=== PATIENT | female | born 1960 | race Caucasian/White ===

== ENCOUNTER 2016-06-29 01:58 | Inpatient (IN) | payer MEDICARE, BC ==
[~2016-06-29] VITALS: Ht 160 cm; Wt 63.6 kg
[2016-06-29] MEDS ORDERED: IPRATRPIUM/ALBUTEROL 0.5/2.5MG 3 ML NEBU. NEB ONE (02:15)
[2016-06-29 02:23] LABS: BASO % 0 % (0-3); EOS % 1 % (0-3); LYMPH # 2.2 x10^3/uL (1.0-4.8); LYMPH % 12 % (24-48); MEAN CORPUSCULAR HEMOGLOBIN 29 pg (25-35); MEAN CORPUSCULAR HGB CONC 33 g/dL (31-37); MEAN CORPUSCULAR VOLUME 88 fL (79-100); MONO % 6 % (0-9); NEUT % 81 % (31-73); PLATELET COUNT 251 x10^3/uL (140-400); RED BLOOD COUNT 5.11 x10^6/uL (3.50-5.40); RED CELL DISTRIBUTION WIDTH 13.2 % (11.5-14.5); WHITE BLOOD COUNT 18.5 x10^3/uL (4.0-11.0)
[2016-06-29 02:36] LABS: CALCIUM 9.4 mg/dL (8.5-10.1); CREATININE 0.7 mg/dL (0.6-1.0); GFR 86.9; POTASSIUM 3.9 mmol/L (3.5-5.1)
--- NOTE | 2016-06-29 03:00 | PHYS DOC ---
Past Medical History Past Medical History: Fibromyalgia Past Surgical History: , Other Additional Past Surgical Histo: R. KNEE, R. TENDON RELEASE Smoking: Cigarettes Alcohol Use: None Drug Use: None Adult General Chief Complaint Chief Complaint: SHORTNESS OF BREATH HPI HPI Patient is a 55 year old female who presents with for evaluation of difficulty breathing and persistent cough. She has had illness for the past 2 weeks including chills, myalgia, cough, difficulty breathing, fever and chills. States she had fever last week, but it has resolved. She was improving on the whole, but has persistent cough and difficulty breathing. Denies hemoptysis, leg pain or swelling, headache, sore throat, rhinorrhea, leg pain or swelling, abdominal pain, nausea or vomiting, diarrhea. Denies recent hospitalization or antibiotic use. Review of Systems Review of Systems Constitutional: Had fever and chills [] Eyes: Denies change in visual acuity, redness, or eye pain [] HENT: Denies nasal congestion or sore throat [] Respiratory: Has cough and shortness of breath [] Cardiovascular: No additional information not addressed in HPI [] GI: Denies abdominal pain, nausea, vomiting, bloody stools or diarrhea [] : Denies dysuria or hematuria [] Musculoskeletal: Denies back pain or joint pain [] Integument: Denies rash or skin lesions [] Neurologic: Denies headache, focal weakness or sensory changes [] Endocrine: Denies polyuria or polydipsia [] Current Medications Current Medications Current Medications Medications (Trade) Dose Ordered Sig/[facility] Start Time Stop Time Status Last Admin Dose Admin Albuterol/ Ipratropium (Duoneb) 3 ml 1X ONCE 06/29/16 02:15 06/29/16 02:48 DC 06/29/16 02:28 3 ML Levofloxacin/ Dextrose 1 each 1 each PRN DAILY PRN 06/29/16 03:15 UNV Ondansetron HCl (Zofran) 4 mg PRN Q8HRS PRN 06/29/16 03:15 06/30/16 03:14 UNV Prednisone (Prednisone) 60 mg 1X ONCE 06/29/16 03:15 06/29/16 03:16 Sodium Chloride (Iv Sodium Chloride 0.9% 1000ml Bag) 1,000 ml @ 1,000 mls/hr 1X ONCE 06/29/16 03:15 06/29/16 04:14 UNV Allergies Allergies Allergies Coded Allergies Type Severity Reaction Last Updated Verified No Known Drug Allergies 06/29/16 No Physical Exam Physical Exam Constitutional: Well developed, well nourished, no acute distress, non-toxic appearance. [] HENT: Normocephalic, atraumatic, bilateral external ears normal, oropharynx moist, no oral exudates, nose normal. [] Eyes: PERRLA, EOMI. [] Neck: Normal range of motion, supple, no stridor. [] Cardiovascular:Heart rate regular rhythm [] Lungs & Thorax: Bilateral breath sounds clear to auscultation. Bronchospastic cough [] Abdomen: Bowel sounds normal, soft, no tenderness. [] Skin: Warm, dry, no erythema, no rash. [] Back: Normal range of motion. [] Extremities: No tenderness, ROM intact, no edema, no palpable cord. [] Neurologic: Alert and oriented X 3, normal motor function, normal sensory function, no focal deficits noted. [] Psychologic: Affect normal, judgement normal, mood normal. [] Current Patient Data Vital Signs Vital Signs Date Time Temp Pulse Resp B/P Pulse Ox O2 Delivery O2 Flow Rate FiO2 06/29/16 02:30 97 Nasal Cannula 3.0 06/29/16 02:21 98.2 115 24 153/75 98.2 Lab Values Laboratory Tests Test 06/29/16 02:07 White Blood Count 18.5x10^3/uL (4.0-11.0) H Red Blood Count 5.11x10^6/uL (3.50-5.40) Hemoglobin 15.0g/dL (12.0-15.5) Hematocrit 45.0% (36.0-47.0) Mean Corpuscular Volume 88fL (79-100) Mean Corpuscular Hemoglobin 29pg (25-35) Mean Corpuscular Hemoglobin Concent 33g/dL (31-37) Red Cell Distribution Width 13.2% (11.5-14.5) Platelet Count 251x10^3/uL (140-400) Neutrophils (%) (Auto) 81% (31-73) H Lymphocytes (%) (Auto) 12% (24-48) L Monocytes (%) (Auto) 6% (0-9) Eosinophils (%) (Auto) 1% (0-3) Basophils (%) (Auto) 0% (0-3) Neutrophils # (Auto) 15.0x10^3uL (1.8-7.7) H Lymphocytes # (Auto) 2.2x10^3/uL (1.0-4.8) Monocytes # (Auto) 1.1x10^3/uL (0.0-1.1) Eosinophils # (Auto) 0.2x10^3/uL (0.0-0.7) Basophils # (Auto) 0.0x10^3/uL (0.0-0.2) Platelet Estimate Pending Sodium Level 135mmol/L (136-145) L Potassium Level 3.9mmol/L (3.5-5.1) Chloride Level 98mmol/L (98-107) Carbon Dioxide Level 28mmol/L (21-32) Anion Gap 9 (6-14) Blood Urea Nitrogen 8mg/dL (7-20) Creatinine 0.7mg/dL (0.6-1.0) Estimated GFR (Cockcroft-Gault) 86.9 Glucose Level 118mg/dL (70-99) H Calcium Level 9.4mg/dL (8.5-10.1) Troponin I Quantitative < 0.017ng/mL (0.000-0.055) [id number]-Yrz-M-Type Natriuretic Peptide 133pg/mL (0-124) H Laboratory Tests 06/29/16 02:07 Laboratory Tests 06/29/16 02:07 EKG EKG EKG as interpreted by me as sinus tachycardia, rate 1:15, no ST-T changes, normal intervals, no ectopy Radiology/Procedures Radiology/Procedures Chest xray as interpreted by me with consolidation to right lower heart border, but otherwise nonacute Course & Med Decision Making Course & Med Decision Making Pertinent Labs and Imaging studies reviewed. (See chart for details) Has leukocytosis and haziness in right heart border concerning for pneumonia. Desats into the upper 80s upon standing. She maintains oxygenation in the low 90s on 2 L nasal cannula. Will admit for community acquired pneumonia. Discussed case with Dr. Bautista, who will admit. Prieto Disclaimer Dragon Disclaimer This electronic medical record was generated, in whole or in part, using a voice recognition dictation system. Departure Departure Impression: Primary Impression: Community acquired pneumonia Disposition: ADMITTED INPATIENT Condition: STABLE Dianne GOODEN MD Jun 29, 2016 03:00
[2016-06-29] MEDS ORDERED: PREDNISONE 20 MG TABLET PO ONE (03:15)
[2016-06-29] MEDS ORDERED: ALBUTEROL SULFATE 2.5 MG/3 ML NEBU. NEB PRN (03:15)
[2016-06-29] MEDS ORDERED: IV NORMAL SALINE 1000ML BAG 1,000 ML IV ONE (03:15)
[2016-06-29] MEDS ORDERED: ONDANSETRON PF 4 MG/2 ML VIAL. IV PRN (03:15)
[2016-06-29] MEDS ORDERED: LEVOFLOXACIN PER PHARMACY MC PRN (03:30)
[2016-06-29 04:30] VITALS: BP 136/74
--- NOTE | 2016-06-29 04:53 | ACF ---
Admit Criteria Forms Admit Criteria Forms Admit Criteria Forms PNEUMONIA, COMMUNITY ACQUIRED Clinical Indications for Admission to Inpatient Care ( Place 'X' for any and all applicable criteria): Admission is indicated for ANY ONE of the following (1)(2)(3): [X]I. Hypoxemia indicated by ANY ONE of the following: [X]a) Oxygen saturation less than 90% while breathing room air [ ]b) PO2 less than 60 mm Hg (8.0 kPa) while breathing room air [ ]c) Chronic lung disease with significant deterioration from baseline oxygenation []II. Appropriate diagnostic testing and treatment unavailable in outpatient or recovery facility (eg,testing or infection control measures unavailable(10) [ ]III. Moderate-risk or high-risk category patients (Pneumonia Severity Index (PSI) class IV or V, or CURB-65 score of 3 or greater). [ ]IV. Outpatient treatment failure as indicated by ANY ONE of the following(9) : [ ]a) Failure to respond to antibiotic (eg, resistant organism) [ ]b) Clinically significant adverse effects from medication (eg, vomiting) [ ]c) Complications of pneumonia (eg, empyema, bacteremia) [ ]d) Significant worsening of comorbid cond necessitating inpatient care (eg, chronic heart failure) [ ]V. Intermediate-risk category patients (eg, PSI class III or CURB-65 score 2) who do not improve with initial therapy and observation. [ ]. Immunocompromised patients (eg, AIDS, chronic steroid use) at moderate or high risk based on clinical evaluation. [ ]VII. Complicated pleural effusions (eg, exudative, loculated) [ ]VIII.Hemodynamic instability [ ] IX. Altered mental status that is severe or persistent. [ ]X. Dehydration that is severe or persistent. [ ]XI. Bacteremia [ ]XII. Respiratory finding (eg. tachypnea) that do not respond to outpatient or observation care treatment Extended stay beyond goal length of stay may be needed for (20) [ ]a) Unclear diagnosis [ ]b) Pleural disease [ ]c) Severe pneumonia or treatment failure (25 [ ]d) Respiratory failure (anticipate invasive or noninvasive ventilatory support) [ ]e) Abnormal serum electrolytes (serum Na concentration less than 135 mEq/L (mmol/L) (32)(33) [ ]f) Clinically significant comorbid illness (eg, heart failure, atrial fibrillation with rapid heart rate, alcohol withdrawal, renal insufficiency)(34)(35) [ ]g) Comorbid acute exacerbation of COPD(36) [ ]h) Concomitant diagnosis of malignancy that may be associated with malnutrition, immunologic impairment, or bronchial obstruction. [ ]i) Concomitant altered mental status [ ]j) Culture-identified Gram-negative or antibiotic-resistant organism (eg, Pseudomonas, methicillin-resistant Staphylococcus aureus)(30) [ ]k) Healthcare-associated pneumonia The original [facility] content created by [employer] has been revised. The portions of the content which have been revised are identified through the use of italic text or in bold, and [facility] has neither reviewed nor approved the modified material. All other unmodified content is copyright [facility]. Please see references footnoted in the original [facility] edition 2016 CAROLE SINGH Jun 29, 2016 04:53
[2016-06-29] MEDS ORDERED: ESOM20CA PO (05:10)
[2016-06-29] MEDS ORDERED: HYDR-2666 PO (05:10)
[2016-06-29] MEDS ORDERED: FENT1PAT15 TD (05:10)
[2016-06-29 07:00] VITALS: BP 119/67
--- NOTE | 2016-06-29 07:42 | RAD ---
Portable chest, 06/29/2016: History: Dyspnea, cough The heart size and pulmonary vascularity are normal. There is minimal scarring over the pulmonary apices. No pulmonary consolidation is seen. There is no evidence of pleural fluid. IMPRESSION: No acute cardiopulmonary abnormality is detected.
[2016-06-29] MEDS ORDERED: PNEUMOC CONJ VACC 23-VALENT 0.5 ML VIAL. VAX IM ONE (09:00)
[2016-06-29] MEDS ORDERED: PNEUMOCOCCAL VAX SCREEN BY RX. MC ONE (09:00)
[2016-06-29] MEDS: ACETAMINOPHEN 325 MG TABLET. PO PRN ×2 (09:38→14:47)
[2016-06-29 09:40] LABS: % BASOS 1 % (0-3); % EOS 1 % (0-5)
[2016-06-29 09:41] LABS: PLT ESTIMATE ADEQUATE (ADEQUATE)
[2016-06-29 11:00] VITALS: BP 115/66
--- NOTE | 2016-06-29 12:15 | EKG ---
[facility] [address] [place] [address] Test Date: 2016-06-29 Test Time: 02:07:25 Pat Name: BOB JAIME Department: Room: Gender: F Outsole Tacker: : 1960 Requested By: Dianne GOODEN Order Number: [id number] Reading MD: Measurements Intervals [place] Rate: 115 P: 41 LA: 148 QRS: 64 QRSD: 74 T: 53 QT: 332 QTc: 461 Interpretive Statements SINUS TACHYCARDIA OTHERWISE NORMAL ECG RI6.01 Unconfirmed report No previous ECG available for comparison
[2016-06-29 15:00] VITALS: BP 121/64
[2016-06-29 19:00] VITALS: BP 113/62
[2016-06-29] MEDS: PROMETH/CODEINE 6.25/10MG 5 ML SYRUP. PO PRN (22:06)
[2016-06-29] MEDS: HYDROCODONE/APAP 5/325MG TABLET. PO PRN (22:08)
[2016-06-29] MEDS: ENOXAPARIN 40 MG/0.4 ML DISP.SYRIN. SQ SCH (22:09)
--- NOTE | 2016-06-29 22:09 | HP ---
ADMIT DATE: 06/29/2016 CHIEF COMPLAINT: Shortness of breath. HISTORY OF PRESENT ILLNESS: The patient is a 55-year-old smoker who presented to the Emergency Room with severe shortness of breath. She relates that she started having stuffy runny nose about 1 week ago. This was a sudden onset and progressed quickly to a sore throat, cough, sputum production and subjective fever and chills as well as difficulty breathing. She felt actually that she was getting a little better towards the end of the week; however, yesterday symptoms once again were terrible with fevers and feeling quite ill. She therefore decided to come to the hospital for evaluation. She specifically denies any hemoptysis, nausea, vomiting, diarrhea. Multiple sick contacts in the family, however. PAST MEDICAL HISTORY: Fibromyalgia, COPD, knee surgery. FAMILY HISTORY: Positive heart disease in father and siblings. SOCIAL HISTORY: Lives with her , is on disability for fibromyalgia, but continues to smoke about 1 pack a day, although quit when her symptoms began one week ago. Denies any alcohol or drug use. ALLERGIES: No known drug allergies. HOME MEDICATIONS: Reconciled with MAR. REVIEW OF SYSTEMS: Positive as per HPI. Breathing is somewhat improved since admission a few hours earlier. Rest of organ system review is negative. PHYSICAL EXAMINATION: VITAL SIGNS: Show a blood pressure of 119/67, heart rate of 90, respiratory rate of 18. She is afebrile, pulse ox 90 with 2 liters by nasal cannula. GENERAL: This is a well-nourished, but ill-appearing 55-year-old woman, alert and oriented, in no acute distress. HEENT: Shows no scleral icterus. NECK: Supple, without any lymphadenopathy. LUNGS: Positive for wheezing, no rales appreciated. CARDIOVASCULAR: Regular rate and rhythm. ABDOMEN: Positive bowel sounds, soft, nontender. EXTREMITIES: Show no edema. SKIN: Warm, soft and dry without any rash. LABORATORY DATA: CBC with a WBC of 18.5, hemoglobin 15.0, platelets of 251. Chemistries with a BUN and creatinine of 8 and 0.7. Electrolytes within normal. Imaging studies show a chest x-ray with no acute cardiopulmonary abnormality noted. ASSESSMENT AND PLAN: The patient is a 55-year-old woman presenting what appears to be acute bronchitis/chronic obstructive pulmonary disease exacerbation. We will treat her with ongoing steroids, nebulizers, O2 as needed. She also has been started on Levaquin for bronchitis. Continue other supportive measures as needed for cough and runny nose. For her fibromyalgia, her home regimen of fentanyl and hydrocodone will be continued. She will be placed on IV fluids. Tobacco abuse is ongoing, although she has been able to refrain from smoking for the past week. She declines patch at this time. Prophylaxis will be instituted with PPI and Lovenox. SHYANN DAVID MD DR: AURORA/nts JOB#: [id number] / [id number] ALEXANDER
[2016-06-29] MEDS: POTASSIUM CHLORIDE 20 MEQ in IV 1/2 NORMAL SALINE 1,000 ML IV SCH (22:12)
[2016-06-29 23:00] VITALS: BP 107/66
[2016-06-30 03:00] VITALS: BP 96/68
[2016-06-30 06:48] LABS: BASO # 0.1 x10^3/uL (0.0-0.2); BASO % 1 % (0-3); EOS % 2 % (0-3); HEMATOCRIT 38.5 % (36.0-47.0); HEMOGLOBIN 12.3 g/dL (12.0-15.5); LYMPH # 3.7 x10^3/uL (1.0-4.8); LYMPH % 28 % (24-48); MEAN CORPUSCULAR HEMOGLOBIN 29 pg (25-35); MEAN CORPUSCULAR HGB CONC 32 g/dL (31-37); MEAN CORPUSCULAR VOLUME 91 fL (79-100); MONO % 6 % (0-9); NEUT % 64 % (31-73); PLATELET COUNT 211 x10^3/uL (140-400); RED BLOOD COUNT 4.25 x10^6/uL (3.50-5.40); RED CELL DISTRIBUTION WIDTH 13.5 % (11.5-14.5); WHITE BLOOD COUNT 12.9 x10^3/uL (4.0-11.0)
[2016-06-30 07:00] VITALS: BP 124/70
[2016-06-30 07:05] LABS: ALBUMIN 2.6 g/dL (3.4-5.0); ALBUMIN/GLOBULIN RATIO 0.6 (1.0-1.7); CALCIUM 8.7 mg/dL (8.5-10.1); CREATININE 0.8 mg/dL (0.6-1.0); GFR 74.5; POTASSIUM 4.2 mmol/L (3.5-5.1); TOTAL BILIRUBIN 0.4 mg/dL (0.2-1.0); TOTAL PROTEIN 6.8 g/dL (6.4-8.2)
[2016-06-30] MEDS: PROMETH/CODEINE 6.25/10MG 5 ML SYRUP. PO PRN ×2 (09:44→20:57)
[2016-06-30] MEDS: PANTOPRAZOLE 40 MG TABLET. PO SCH (09:45)
[2016-06-30] MEDS: HYDROCODONE/APAP 5/325MG TABLET. PO PRN ×2 (09:45→17:54)
[2016-06-30 11:00] VITALS: BP 116/65
[2016-06-30] MEDS: ALBUTEROL SULFATE 2.5 MG/3 ML NEBU. NEB SCH ×3 (11:40→19:33)
[2016-06-30] MEDS: GUAIFENESIN DM 600/30MG TAB.ER.12H. PO SCH ×2 (12:15→20:57)
[2016-06-30] MEDS: POTASSIUM CL 20MEQ-0.45% NACL 1,000 ML IV SCH (14:25)
[2016-06-30 15:00] VITALS: BP 114/74
--- NOTE | 2016-06-30 16:36 | PDOC ---
PROGRESS NOTES Chief Complaint Chief Complaint Bronchitis ASSESSMENT AND PLAN: 1. COPD exacerbation/ acute bronchitis: clinically sl improved. cont current regimen (levaquin, nebs, O2, mucinex, prednisone) 2. Chronic pain syndrome: cont home meds 3. GERD: on PPI 4. Dispo: poss home in AM Vitals Vitals Vital Signs Date Time Temp Pulse Resp B/P Pulse Ox O2 Delivery O2 Flow Rate FiO2 06/30/16 15:39 92 Nasal Cannula 2.0 06/30/16 15:00 97.6 93 20 114/74 97.6 Physical Exam General: Alert, Oriented X3 Heart: Regular rate Lungs: Wheezing, Other (UA rhonchi. cough with deep breathing) Abdomen: Normal bowel sounds, Soft, No tenderness Extremities: No clubbing Skin: No rashes Labs LABS Laboratory Tests Test 06/30/16 05:29 White Blood Count 12.9x10^3/uL (4.0-11.0) Red Blood Count 4.25x10^6/uL (3.50-5.40) Hemoglobin 12.3g/dL (12.0-15.5) Hematocrit 38.5% (36.0-47.0) Mean Corpuscular Volume 91fL (79-100) Mean Corpuscular Hemoglobin 29pg (25-35) Mean Corpuscular Hemoglobin Concent 32g/dL (31-37) Red Cell Distribution Width 13.5% (11.5-14.5) Platelet Count 211x10^3/uL (140-400) Neutrophils (%) (Auto) 64% (31-73) Lymphocytes (%) (Auto) 28% (24-48) Monocytes (%) (Auto) 6% (0-9) Eosinophils (%) (Auto) 2% (0-3) Basophils (%) (Auto) 1% (0-3) Neutrophils # (Auto) 8.3x10^3uL (1.8-7.7) Lymphocytes # (Auto) 3.7x10^3/uL (1.0-4.8) Monocytes # (Auto) 0.7x10^3/uL (0.0-1.1) Eosinophils # (Auto) 0.2x10^3/uL (0.0-0.7) Basophils # (Auto) 0.1x10^3/uL (0.0-0.2) Sodium Level 141mmol/L (136-145) Potassium Level 4.2mmol/L (3.5-5.1) Chloride Level 105mmol/L (98-107) Carbon Dioxide Level 30mmol/L (21-32) Anion Gap 6 (6-14) Blood Urea Nitrogen 8mg/dL (7-20) Creatinine 0.8mg/dL (0.6-1.0) Estimated GFR (Cockcroft-Gault) 74.5 BUN/Creatinine Ratio 10 (6-20) Glucose Level 80mg/dL (70-99) Calcium Level 8.7mg/dL (8.5-10.1) Total Bilirubin 0.4mg/dL (0.2-1.0) Aspartate Amino Transf (AST/SGOT) 7U/L (15-37) Alanine Aminotransferase (ALT/SGPT) 15U/L (14-59) Alkaline Phosphatase 74U/L (46-116) Total Protein 6.8g/dL (6.4-8.2) Albumin 2.6g/dL (3.4-5.0) Albumin/Globulin Ratio 0.6 (1.0-1.7) Review of Systems Review of Systems still sob, albeit sl improved Comment Review of Relevant Labs Laboratory Tests Test 06/29/16 02:07 06/30/16 05:29 White Blood Count 18.5x10^3/uL (4.0-11.0) 12.9x10^3/uL (4.0-11.0) Red Blood Count 5.11x10^6/uL (3.50-5.40) 4.25x10^6/uL (3.50-5.40) Hemoglobin 15.0g/dL (12.0-15.5) 12.3g/dL (12.0-15.5) Hematocrit 45.0% (36.0-47.0) 38.5% (36.0-47.0) Mean Corpuscular Volume 88fL (79-100) 91fL (79-100) Mean Corpuscular Hemoglobin 29pg (25-35) 29pg (25-35) Mean Corpuscular Hemoglobin Concent 33g/dL (31-37) 32g/dL (31-37) Red Cell Distribution Width 13.2% (11.5-14.5) 13.5% (11.5-14.5) Platelet Count 251x10^3/uL (140-400) 211x10^3/uL (140-400) Neutrophils (%) (Auto) 81% (31-73) 64% (31-73) Lymphocytes (%) (Auto) 12% (24-48) 28% (24-48) Monocytes (%) (Auto) 6% (0-9) 6% (0-9) Eosinophils (%) (Auto) 1% (0-3) 2% (0-3) Basophils (%) (Auto) 0% (0-3) 1% (0-3) Neutrophils # (Auto) 15.0x10^3uL (1.8-7.7) 8.3x10^3uL (1.8-7.7) Lymphocytes # (Auto) 2.2x10^3/uL (1.0-4.8) 3.7x10^3/uL (1.0-4.8) Monocytes # (Auto) 1.1x10^3/uL (0.0-1.1) 0.7x10^3/uL (0.0-1.1) Eosinophils # (Auto) 0.2x10^3/uL (0.0-0.7) 0.2x10^3/uL (0.0-0.7) Basophils # (Auto) 0.0x10^3/uL (0.0-0.2) 0.1x10^3/uL (0.0-0.2) Segmented Neutrophils % 65% (35-66) Band Neutrophils % 11% (0-9) Lymphocytes % 17% (24-48) Monocytes % 5% (0-10) Eosinophils % 1% (0-5) Basophils % 1% (0-3) Platelet Estimate Adequate (ADEQUATE) Sodium Level 135mmol/L (136-145) 141mmol/L (136-145) Potassium Level 3.9mmol/L (3.5-5.1) 4.2mmol/L (3.5-5.1) Chloride Level 98mmol/L (98-107) 105mmol/L (98-107) Carbon Dioxide Level 28mmol/L (21-32) 30mmol/L (21-32) Anion Gap 9 (6-14) 6 (6-14) Blood Urea Nitrogen 8mg/dL (7-20) 8mg/dL (7-20) Creatinine 0.7mg/dL (0.6-1.0) 0.8mg/dL (0.6-1.0) Estimated GFR (Cockcroft-Gault) 86.9 74.5 Glucose Level 118mg/dL (70-99) 80mg/dL (70-99) Calcium Level 9.4mg/dL (8.5-10.1) 8.7mg/dL (8.5-10.1) Troponin I Quantitative < 0.017ng/mL (0.000-0.055) UW-Tkh-T-Type Natriuretic Peptide 133pg/mL (0-124) BUN/Creatinine Ratio 10 (6-20) Total Bilirubin 0.4mg/dL (0.2-1.0) Aspartate Amino Transf (AST/SGOT) 7U/L (15-37) Alanine Aminotransferase (ALT/SGPT) 15U/L (14-59) Alkaline Phosphatase 74U/L (46-116) Total Protein 6.8g/dL (6.4-8.2) Albumin 2.6g/dL (3.4-5.0) Albumin/Globulin Ratio 0.6 (1.0-1.7) Laboratory Tests Test 06/30/16 05:29 White Blood Count 12.9x10^3/uL (4.0-11.0) Red Blood Count 4.25x10^6/uL (3.50-5.40) Hemoglobin 12.3g/dL (12.0-15.5) Hematocrit 38.5% (36.0-47.0) Mean Corpuscular Volume 91fL (79-100) Mean Corpuscular Hemoglobin 29pg (25-35) Mean Corpuscular Hemoglobin Concent 32g/dL (31-37) Red Cell Distribution Width 13.5% (11.5-14.5) Platelet Count 211x10^3/uL (140-400) Neutrophils (%) (Auto) 64% (31-73) Lymphocytes (%) (Auto) 28% (24-48) Monocytes (%) (Auto) 6% (0-9) Eosinophils (%) (Auto) 2% (0-3) Basophils (%) (Auto) 1% (0-3) Neutrophils # (Auto) 8.3x10^3uL (1.8-7.7) Lymphocytes # (Auto) 3.7x10^3/uL (1.0-4.8) Monocytes # (Auto) 0.7x10^3/uL (0.0-1.1) Eosinophils # (Auto) 0.2x10^3/uL (0.0-0.7) Basophils # (Auto) 0.1x10^3/uL (0.0-0.2) Sodium Level 141mmol/L (136-145) Potassium Level 4.2mmol/L (3.5-5.1) Chloride Level 105mmol/L (98-107) Carbon Dioxide Level 30mmol/L (21-32) Anion Gap 6 (6-14) Blood Urea Nitrogen 8mg/dL (7-20) Creatinine 0.8mg/dL (0.6-1.0) Estimated GFR (Cockcroft-Gault) 74.5 BUN/Creatinine Ratio 10 (6-20) Glucose Level 80mg/dL (70-99) Calcium Level 8.7mg/dL (8.5-10.1) Total Bilirubin 0.4mg/dL (0.2-1.0) Aspartate Amino Transf (AST/SGOT) 7U/L (15-37) Alanine Aminotransferase (ALT/SGPT) 15U/L (14-59) Alkaline Phosphatase 74U/L (46-116) Total Protein 6.8g/dL (6.4-8.2) Albumin 2.6g/dL (3.4-5.0) Albumin/Globulin Ratio 0.6 (1.0-1.7) Microbiology 06/29/16 Blood Culture - Preliminary, Resulted NO GROWTH AFTER 1 DAY Medications Current Medications Albuterol/ Ipratropium (Duoneb) 3 ml 1X ONCE NEB Last administered on 02:28; Start 06/29/16 at 02:15; Stop 06/29/16 at 02:48; Status DC Prednisone (Prednisone) 60 mg 1X ONCE PO Last administered on 06/29/16 03:30 ; Start 06/29/16 at 03:15; Stop 06/29/16 at 03:16; Status DC Levofloxacin/ Dextrose 1 each 1 each PRN DAILY PRN MC SEE COMMENTS; Start 06/29 at 03:30 Sodium Chloride (Iv Sodium Chloride 0.9% 1000ml Bag) 1,000 ml @ 1,000 mls/hr 1X ONCE IV Last administered on 06/29/16 03:30; Start 06/29/16 at 03:15; Stop 06/29/16 at 04:14; Status DC Ondansetron HCl (Zofran) 4 mg PRN Q8HRS PRN IV NAUSEA/VOMITING; Start 06/29/16 at 03:15; Stop 06/30/16 at 03:14; Status DC Acetaminophen (Tylenol) 650 mg PRN Q4HRS PRN PO FEVER Last administered on 06/29 14:47; Start 06/29/16 at 03:15; Stop 06/30/16 at 03:14; Status DC Albuterol Sulfate 2.5 mg 2.5 mg PRN QID PRN NEB DYSPNEA Last administered on 15:54; Start 06/29/16 at 03:15; Stop 06/30/16 at 03:14; Status DC Levofloxacin/ Dextrose 100 ml @ 100 mls/hr Q24H IV Last administered on 06:07; Start 06/30/16 at 06:00 Levofloxacin/ Dextrose (LEVAQUIN 500mg PREMIX) 100 ml @ 100 mls/hr ONCE ONCE IV Last administered on 06/29/16 05:54; Start 06/29/16 at 03:30; Stop at 04:29; Status DC Pneumococcal Polyvalent Vaccine (Do NOT chart on this placeholder) 1 each 1X ONCE MC ; Start 06/29/16 at 09:00; Stop 06/29/16 at 09:01; Status UNV Pneumococcal Polyvalent Vaccine (Pneumovax 23) 0.5 ml ONCE ONCE VAX IM ; Start 06/29/16 at 09:00; Stop 06/29/16 at 09:01; Status DC Promethazine HCl/ Codeine (Phenergan With Codeine) 5 ml PRN Q4HRS PRN PO COUGH Last administered on 06/30/16 09:44; Start 06/29/16 at 21:00 Fentanyl (Duragesic 25mcg/ Hr Patch) 1 patch Q3DAYS TD ; Start 07/02/16 at 09:00 Acetaminophen/ Hydrocodone Bitart (Lortab 5/325) 0.5 tab PRN QID PRN PO PAIN Last administered on 06/30/16 09:45; Start 06/29/16 at 21:30 Pantoprazole Sodium (Protonix) 40 mg DAILYAC PO Last administered on 06/30/16 09:45; Start 06/30/16 at 07:30 Acetaminophen/ Hydrocodone Bitart (Lortab 5/325) 1 tab PRN QID PRN PO PAIN; Start 06/29/16 at 21:30 Enoxaparin Sodium 40 mg 40 mg Q24H SQ Last administered on 06/29/16 22:09; Start 06/29/16 at 21:30 Potassium Chloride/Sodium Chloride (Iv Sodium Chloride 0.45%) 1,010 ml @ 75 mls /hr [id number] IV Last administered on 06/29/16 22:12; Start 06/29/16 at 22:00; Stop 06/30/16 at 14:03; Status DC Albuterol Sulfate (Ventolin Neb Soln) 2.5 mg RTQID NEB Last administered on 15:39; Start 06/30/16 at 12:00 Guaifenesin 1 tab 1 tab BID PO Last administered on 06/30/16 12:15; Start at 12:15 Potassium Chloride/Sodium Chloride (KCl 20 Meq-0.45% Nacl) 1,000 ml @ 75 mls/ hr [id number] IV Last administered on 06/30/16 14:25; Start 06/30/16 at 14:03 Active Scripts Active Reported Nexium Capsule (Esomeprazole Magnesium) 20 Mg Capsule.dr 1 Cap PO DAILY FENTANYL 25mcg/hr (Fentanyl) 1 Each Patch.td72 1 Patch TD Q3DAYS Hydrocodone-Apap 5-325 (Hydrocodone Bit/Acetaminophen) 1 Each Tablet 0.5-1 Tab PO PRN QID PRN Vitals/I & O Vital Sign - Last 24 Hours 06/29/16 06/29/16 06/29/16 06/29/16 19:00 20:00 22:08 23:00 Temp 97.6 97.9 97.6 97.9 Pulse 74 65 Resp 18 16 B/P 113/62 107/66 Pulse Ox 93 96 O2 Delivery Nasal Cannula Nasal Cannula O2 Flow Rate 2.0 2.0 06/30/16 06/30/16 06/30/16 06/30/16 03:00 07:00 08:30 09:45 Temp 97.6 97.5 97.6 97.5 Pulse 65 72 Resp 18 18 B/P 96/68 124/70 Pulse Ox 97 92 O2 Delivery Nasal Cannula Nasal Cannula Nasal Cannula O2 Flow Rate 2.0 2.0 2.0 06/30/16 06/30/16 06/30/16 06/30/16 10:45 11:00 11:23 15:00 Temp 97.8 97.6 97.8 97.6 Pulse 70 93 Resp 20 20 B/P 116/65 114/74 Pulse Ox 92 95 91 O2 Delivery Nasal Cannula Nasal Cannula Nasal Cannula Nasal Cannula O2 Flow Rate 2.0 2.0 2.0 2.0 06/30/16 15:39 Pulse Ox 92 O2 Delivery Nasal Cannula O2 Flow Rate 2.0 Intake and Output 06/29/16 06/29/16 06/30/16 15:00 23:00 07:00 Intake Total 380 ml 300 ml 240 ml Output Total 400 ml 800 ml 900 ml Balance -20 ml -500 ml -660 ml SHYANN DAVID MD Jun 30, 2016 16:36
[2016-06-30 19:00] VITALS: BP 111/60
[2016-06-30] MEDS: ENOXAPARIN 40 MG/0.4 ML DISP.SYRIN. SQ SCH (20:59)
[2016-06-30] MEDS: POTASSIUM CHLORIDE 20 MEQ in IV 1/2 NORMAL SALINE 1,000 ML IV SCH (22:47)
[2016-06-30 22:53] VITALS: BP 115/62
[2016-07-01] MEDS: HYDROCODONE/APAP 5/325MG TABLET. PO PRN ×3 (01:38→16:34)
[2016-07-01] MEDS: PROMETH/CODEINE 6.25/10MG 5 ML SYRUP. PO PRN ×3 (01:41→21:32)
[2016-07-01 03:00] VITALS: BP 111/69
[2016-07-01] MEDS: POTASSIUM CL 20MEQ-0.45% NACL 1,000 ML IV SCH ×2 (03:38→16:35)
[2016-07-01] MEDS: PANTOPRAZOLE 40 MG TABLET. PO SCH (05:55)
[2016-07-01 07:00] VITALS: BP 120/70
[2016-07-01] MEDS: ALBUTEROL SULFATE 2.5 MG/3 ML NEBU. NEB SCH ×4 (07:22→20:15)
[2016-07-01] MEDS: GUAIFENESIN DM 600/30MG TAB.ER.12H. PO SCH ×2 (08:40→21:33)
[2016-07-01] MEDS: PREDNISONE 20 MG TABLET PO SCH (08:40)
--- NOTE | 2016-07-01 10:59 | PDOC ---
PROGRESS NOTES Chief Complaint Chief Complaint CAP HTN History of Present Illness History of Present Illness Still coughing WBC 12 BC neg FLu neg CXR does show PNA NO past PNA NOn smoker PLAN: Check sputum cont IV levaquin 6MW leslee If feels better leslee, can dc home leslee with PO Vitals Vitals Vital Signs Date Time Temp Pulse Resp B/P Pulse Ox O2 Delivery O2 Flow Rate FiO2 07/01/16 10:42 94 Nasal Cannula 2.0 07/01/16 10:30 28 07/01/16 07:00 97.5 76 120/70 97.5 Physical Exam General: Alert, Oriented X3 Heart: Regular rate Lungs: Wheezing, Other (UA rhonchi. cough with deep breathing) Abdomen: Normal bowel sounds, Soft, No tenderness Extremities: No clubbing Skin: No rashes Review of Systems Review of Systems cough, no fevers, no CP, no soa Assessment and Plan Assessmemt and Plan Problems Medical Problems: (1) Community acquired pneumonia Status: Acute Problems: Comment Review of Relevant I have reviewed the following items madisyn (where applicable) has been applied. Labs Laboratory Tests Test 06/30/16 05:29 White Blood Count 12.9x10^3/uL (4.0-11.0) Red Blood Count 4.25x10^6/uL (3.50-5.40) Hemoglobin 12.3g/dL (12.0-15.5) Hematocrit 38.5% (36.0-47.0) Mean Corpuscular Volume 91fL (79-100) Mean Corpuscular Hemoglobin 29pg (25-35) Mean Corpuscular Hemoglobin Concent 32g/dL (31-37) Red Cell Distribution Width 13.5% (11.5-14.5) Platelet Count 211x10^3/uL (140-400) Neutrophils (%) (Auto) 64% (31-73) Lymphocytes (%) (Auto) 28% (24-48) Monocytes (%) (Auto) 6% (0-9) Eosinophils (%) (Auto) 2% (0-3) Basophils (%) (Auto) 1% (0-3) Neutrophils # (Auto) 8.3x10^3uL (1.8-7.7) Lymphocytes # (Auto) 3.7x10^3/uL (1.0-4.8) Monocytes # (Auto) 0.7x10^3/uL (0.0-1.1) Eosinophils # (Auto) 0.2x10^3/uL (0.0-0.7) Basophils # (Auto) 0.1x10^3/uL (0.0-0.2) Sodium Level 141mmol/L (136-145) Potassium Level 4.2mmol/L (3.5-5.1) Chloride Level 105mmol/L (98-107) Carbon Dioxide Level 30mmol/L (21-32) Anion Gap 6 (6-14) Blood Urea Nitrogen 8mg/dL (7-20) Creatinine 0.8mg/dL (0.6-1.0) Estimated GFR (Cockcroft-Gault) 74.5 BUN/Creatinine Ratio 10 (6-20) Glucose Level 80mg/dL (70-99) Calcium Level 8.7mg/dL (8.5-10.1) Total Bilirubin 0.4mg/dL (0.2-1.0) Aspartate Amino Transf (AST/SGOT) 7U/L (15-37) Alanine Aminotransferase (ALT/SGPT) 15U/L (14-59) Alkaline Phosphatase 74U/L (46-116) Total Protein 6.8g/dL (6.4-8.2) Albumin 2.6g/dL (3.4-5.0) Albumin/Globulin Ratio 0.6 (1.0-1.7) Microbiology 06/29/16 Blood Culture - Preliminary, Resulted NO GROWTH AFTER 2 DAYS Medications Current Medications Albuterol/ Ipratropium (Duoneb) 3 ml 1X ONCE NEB Last administered on 02:28; Start 06/29/16 at 02:15; Stop 06/29/16 at 02:48; Status DC Prednisone (Prednisone) 60 mg 1X ONCE PO Last administered on 06/29/16 03:30 ; Start 06/29/16 at 03:15; Stop 06/29/16 at 03:16; Status DC Levofloxacin/ Dextrose 1 each 1 each PRN DAILY PRN MC SEE COMMENTS; Start 06/29 at 03:30 Sodium Chloride (Iv Sodium Chloride 0.9% 1000ml Bag) 1,000 ml @ 1,000 mls/hr 1X ONCE IV Last administered on 06/29/16 03:30; Start 06/29/16 at 03:15; Stop 06/29/16 at 04:14; Status DC Ondansetron HCl (Zofran) 4 mg PRN Q8HRS PRN IV NAUSEA/VOMITING; Start 06/29/16 at 03:15; Stop 06/30/16 at 03:14; Status DC Acetaminophen (Tylenol) 650 mg PRN Q4HRS PRN PO FEVER Last administered on 06/29 14:47; Start 06/29/16 at 03:15; Stop 06/30/16 at 03:14; Status DC Albuterol Sulfate 2.5 mg 2.5 mg PRN QID PRN NEB DYSPNEA Last administered on 15:54; Start 06/29/16 at 03:15; Stop 06/30/16 at 03:14; Status DC Levofloxacin/ Dextrose 100 ml @ 100 mls/hr Q24H IV Last administered on 05:55; Start 06/30/16 at 06:00 Levofloxacin/ Dextrose (LEVAQUIN 500mg PREMIX) 100 ml @ 100 mls/hr ONCE ONCE IV Last administered on 06/29/16 05:54; Start 06/29/16 at 03:30; Stop at 04:29; Status DC Pneumococcal Polyvalent Vaccine (Do NOT chart on this placeholder) 1 each 1X ONCE MC ; Start 06/29/16 at 09:00; Stop 06/29/16 at 09:01; Status UNV Pneumococcal Polyvalent Vaccine (Pneumovax 23) 0.5 ml ONCE ONCE VAX IM Last administered on 07/01/16 08:39; Start 06/29/16 at 09:00; Stop 06/29/16 at 09:01 ; Status DC Promethazine HCl/ Codeine (Phenergan With Codeine) 5 ml PRN Q4HRS PRN PO COUGH Last administered on 07/01/16 05:55; Start 06/29/16 at 21:00 Fentanyl (Duragesic 25mcg/ Hr Patch) 1 patch Q3DAYS TD ; Start 07/02/16 at 09:00 Acetaminophen/ Hydrocodone Bitart (Lortab 5/325) 0.5 tab PRN QID PRN PO PAIN Last administered on 07/01/16 01:38; Start 06/29/16 at 21:30 Pantoprazole Sodium (Protonix) 40 mg DAILYAC PO Last administered on 07/01/16 05:55; Start 06/30/16 at 07:30 Acetaminophen/ Hydrocodone Bitart (Lortab 5/325) 1 tab PRN QID PRN PO PAIN Last administered on 07/01/16 10:30; Start 06/29/16 at 21:30 Enoxaparin Sodium 40 mg 40 mg Q24H SQ Last administered on 06/30/16 20:59; Start 06/29/16 at 21:30 Potassium Chloride/Sodium Chloride (Iv Sodium Chloride 0.45%) 1,010 ml @ 75 mls /hr [id number] IV Last administered on 06/29/16 22:12; Start 06/29/16 at 22:00; Stop 06/30/16 at 14:03; Status DC Albuterol Sulfate (Ventolin Neb Soln) 2.5 mg RTQID NEB Last administered on 10:41; Start 06/30/16 at 12:00 Guaifenesin 1 tab 1 tab BID PO Last administered on 07/01/16 08:40; Start at 12:15 Potassium Chloride/Sodium Chloride (KCl 20 Meq-0.45% Nacl) 1,000 ml @ 75 mls/ hr [id number] IV Last administered on 07/01/16 03:38; Start 06/30/16 at 14:03 Prednisone (Prednisone) 40 mg DAILY PO Last administered on 07/01/16 08:40; Start 07/01/16 at 09:00 Active Scripts Active Reported Nexium Capsule (Esomeprazole Magnesium) 20 Mg Capsule. 1 Cap PO DAILY FENTANYL 25mcg/hr (Fentanyl) 1 Each Patch.td72 1 Patch TD Q3DAYS Hydrocodone-Apap 5-325 (Hydrocodone Bit/Acetaminophen) 1 Each Tablet 0.5-1 Tab PO PRN QID PRN Vitals/I & O Vital Sign - Last 24 Hours 06/30/16 06/30/16 06/30/16 06/30/16 11:00 11:23 15:00 15:39 Temp 97.8 97.6 97.8 97.6 Pulse 70 93 Resp 20 20 B/P 116/65 114/74 Pulse Ox 92 95 91 92 O2 Delivery Nasal Cannula Nasal Cannula Nasal Cannula Nasal Cannula O2 Flow Rate 2.0 2.0 2.0 2.0 06/30/16 06/30/16 06/30/16 06/30/16 17:54 18:46 19:00 19:33 Temp 97.7 97.7 Pulse 79 Resp 20 B/P 111/60 Pulse Ox 94 95 O2 Delivery Nasal Cannula Nasal Cannula Nasal Cannula Nasal Cannula O2 Flow Rate 2.0 2.0 2.0 2.0 06/30/16 06/30/16 07/01/16 07/01/16 20:10 22:53 01:38 03:00 Temp 97.5 98.0 97.5 98.0 Pulse 68 68 Resp 19 18 B/P 115/62 111/69 Pulse Ox 96 96 97 O2 Delivery Room Air Nasal Cannula Room Air Nasal Cannula O2 Flow Rate 2.0 2.0 2.0 07/01/16 07/01/16 07/01/16 07/01/16 03:38 07:00 07:22 08:20 Temp 97.5 97.5 Pulse 76 Resp 17 B/P 120/70 Pulse Ox 93 97 O2 Delivery Nasal Cannula Nasal Cannula Nasal Cannula Room Air O2 Flow Rate 2.0 2.0 2.0 07/01/16 07/01/16 10:30 10:42 Resp 28 Pulse Ox 94 O2 Delivery Nasal Cannula Nasal Cannula O2 Flow Rate 2.0 2.0 Intake and Output 06/30/16 06/30/16 07/01/16 15:01 23:01 07:01 Intake Total 180 ml 580 ml Output Total 500 ml 900 ml Balance -320 ml -320 ml DAPHNIE PELAYO MD Jul 01, 2016 10:59
[2016-07-01 11:14] VITALS: BP 117/68
[2016-07-01 14:49] VITALS: BP 130/75
[2016-07-01 19:00] VITALS: BP 109/57
[2016-07-01] MEDS: ENOXAPARIN 40 MG/0.4 ML DISP.SYRIN. SQ SCH (21:32)
[2016-07-01 23:06] VITALS: BP 125/66
[2016-07-02] MEDS: HYDROCODONE/APAP 5/325MG TABLET. PO PRN (00:49)
[2016-07-02 03:00] VITALS: BP 141/85
[2016-07-02 04:17] LABS: BASO % 0 % (0-3); EOS % 1 % (0-3); HEMATOCRIT 39.1 % (36.0-47.0); HEMOGLOBIN 12.8 g/dL (12.0-15.5); LYMPH % 29 % (24-48); MEAN CORPUSCULAR HEMOGLOBIN 29 pg (25-35); MEAN CORPUSCULAR HGB CONC 33 g/dL (31-37); MEAN CORPUSCULAR VOLUME 90 fL (79-100); MONO % 7 % (0-9); NEUT % 63 % (31-73); PLATELET COUNT 264 x10^3/uL (140-400); RED BLOOD COUNT 4.35 x10^6/uL (3.50-5.40); RED CELL DISTRIBUTION WIDTH 13.4 % (11.5-14.5); WHITE BLOOD COUNT 10.5 x10^3/uL (4.0-11.0)
[2016-07-02] MEDS: POTASSIUM CL 20MEQ-0.45% NACL 1,000 ML IV SCH (05:46)
[2016-07-02 07:28] VITALS: BP 121/69
[2016-07-02] MEDS: ALBUTEROL SULFATE 2.5 MG/3 ML NEBU. NEB SCH ×2 (08:00→12:04)
[2016-07-02] MEDS: GUAIFENESIN DM 600/30MG TAB.ER.12H. PO SCH (08:08)
[2016-07-02] MEDS: PANTOPRAZOLE 40 MG TABLET. PO SCH (08:09)
[2016-07-02] MEDS: PREDNISONE 20 MG TABLET PO SCH (08:09)
[2016-07-02] MEDS ORDERED: FENTANYL 25MCG/HR PATCH. TD SCH (09:00)
[2016-07-02] MEDS ORDERED: Promethazine Hcl/Codeine PO (10:47)
[2016-07-02] MEDS ORDERED: LEVO750T31 PO (10:47)
[2016-07-02] MEDS ORDERED: GUAI-42 PO (10:47)
[2016-07-02 10:54] VITALS: BP 148/117
[2016-07-02 11:21] VITALS: BP 118/72
--- NOTE | 2016-07-03 00:53 | DS ---
DATE OF DISCHARGE: 07/02/2016 DISCHARGE DIAGNOSES: 1. Suspected chronic obstructive pulmonary disease exacerbation with acute bronchitis, improving. 2. Chronic pain syndrome. 3. Gastroesophageal reflux disease. BRIEF HOSPITAL COURSE: A 55-year-old female patient admitted to the hospital for cough and nonpurulent expectoration. She is a smoker and did not smoke for nearly 1 week, admitted to the hospital for suspected COPD exacerbation and she was treated with pediatric nebulizations and steroids. Also, she was started on broad spectrum antibiotics such as Levaquin. She did pass 6-minute walk test and did not develop any hypoxia. Preliminary blood culture so far no growth. Today, she deemed clinically stable enough to go home and follow up with primary care doctor and down filler as needed. DISCHARGE EXAMINATION: GENERAL: Alert, oriented x 3. HEART: S1, S2 present. LUNGS: Anterior chest clear. ABDOMEN: Soft, nontender, no organomegaly. EXTREMITIES: No edema. DISCHARGE DISPOSITION: Home. DISCHARGE MEDICATIONS: New medications: Levaquin 750 mg p.o. daily for 7 days and Phenergan with codeine 5 mL q. 4 hours p.r.n. FOLLOWUP: With primary care doctor in 2 weeks. DIET: Regular. Total time spent for discharge is 31 minutes for patient education, counseling, and coordination of care. DARCI TRIANA MD DR: NOLA/boone JOB#: [id number] / [id number]
== END 2016-07-02 12:30 | disposition home or self-care (01) | DRG 190 ==
LOC: ER 01:58 → 5 SOUTH 03:10
PROVIDERS: ADMIT Internal Medicine Hematology & Oncology; ATTEND Internal Medicine Hematology & Oncology
DX: J44.0 Chronic obstructive pulmonary disease with (acute) lower respiratory infection (principal); J18.9 Pneumonia, unspecified organism; R65.10 Systemic inflammatory response syndrome (SIRS) of non-infectious origin without acute organ dysfunction; E44.0 Moderate protein-calorie malnutrition; J44.1 Chronic obstructive pulmonary disease with (acute) exacerbation; K21.9 Gastro-esophageal reflux disease without esophagitis; J20.9 Acute bronchitis, unspecified; F17.200 Nicotine dependence, unspecified, uncomplicated; G89.4 Chronic pain syndrome; I10 Essential (primary) hypertension; M79.7 Fibromyalgia; Z79.899 Other long term (current) drug therapy; Z82.49 Family history of ischemic heart disease and other diseases of the circulatory system
CPT/HCPCS: 36415; 71010; 80048; 80053; 83880; 84484; 85007; 85027; 87040; 87070; 87205; 90732; 93005; 94250; 94620; 94640; 94760; 96360; J1650; J1956; J7030; J7512; J7620; 97110; 99285-25